=== PATIENT | female | born 1930 | race Caucasian/White ===

== ENCOUNTER → 2019-06-15 | Outpatient (CLI) | payer OTHER ==
[~2019-06-15] MED LIST: ACIDOPHILUS1 EAC4 PO; CALCIUM 600 +1 EA17 PO; FOSAMAX 70 MG T70 MG PO; IPRAT-ALBUT 0.5-3 ML INH; LEVAQUIN 750 M750 MG PO; LISINOPRIL2.5 MG PO; SUPER THERAVIT1 EACH PO
== END ==
LOC: NUC 13:10
DX: R06.02 Shortness of breath (principal); R79.1 Abnormal coagulation profile